=== PATIENT | male | born 1945 | race Caucasian/White ===

== ENCOUNTER 2016-08-25 11:09 | Day surgery (SDC) | payer OTHER ==
[2016-08-25] MEDS ORDERED: NS 1,000 ML IV SCH (12:00)
[2016-08-25] MEDS ORDERED: fentaNYL 100 MCG/2 ML INJ ONE (12:47)
[2016-08-25] MEDS ORDERED: MIDAZOLAM 2 MG/2 ML VIAL ONE (12:48)
--- NOTE | 2016-08-25 14:19 | GPN ---
[f rep st] PROCEDURE NOTE DATE OF PROCEDURE: 08/25/2016 PROCEDURE: Colonoscopy, biopsy, injection, snare, destruction of remaining tissue or ablation. Procedure report dated dictation is today. INDICATIONS: Residual polyp tissue at previous biopsy site in midtransverse colon. Evaluate for any residual tissue. PREOPERATIVE DIAGNOSIS: Rule out residual tissue. POSTOPERATIVE DIAGNOSES: 1. 2 mm proximal ascending colon polyp removed by cold biopsy. 2. Abnormal area of tissue in the midtransverse colon consistent with previous polypectomy biopsy site status post saline assisted lift polypectomy with hot snare partial removal and then destruction of the remaining tissue with argon plasma coagulation, and finally Jaqui ink injection for future reference. INFORMED CONSENT: I discussed with the patient regarding the procedure, alternatives, benefits, risks including bleeding, perforation, infection, risk of medication. Informed consent was signed and witnessed. COMPLICATIONS: None immediate. MEDICATIONS: Versed 4 mg IV, fentanyl 100 mcg IV. DESCRIPTION OF PROCEDURE: Patient placed in left lateral decubitus position. A visual and digital examination was performed. The video colonoscope was inserted via the rectum and advanced under visualization to the terminal ilium. Identified cecum by ileocecal valve, appendiceal orifice, and confluence of tinea. I performed a retroflex examination in the cecum. The endoscope was slowly withdrawn confirming with careful attention paid to mucosal detail. There was a tiny 2 mm polyp in the proximal ascending colon that was removed en toto by cold biopsy. There was the abnormal previous polypectomy area in the midtransverse colon that was noted. This tissue was removed with a saline assisted polypectomy in a piecemeal fashion with incomplete removal. The remaining tissue was destroyed with an argon plasma shipper/receiver. After the destruction of the remaining tissue, I injected Jaqui ink into either side of this polyp to locate it for future reference. The endoscope was then completely withdrawn, confirming the above findings. The patient tolerated the procedure well and was transferred to the recovery room in stable condition. IMPRESSION: 1. Small proximal ascending colon polyp removed by cold biopsy. 2. Abnormal tissue in transverse colon, status post saline assisted piecemeal polypectomy with destruction of remaining tissue by argon plasma coagulation and Jaqui ink injection for future reference. RECOMMENDATIONS: 1. Follow up pathology. 2. Repeat colonoscopy depending on pathology. Probably within 6 months, max a year. 3. If any significantly abnormal cells, i.e. high-grade dysplasia or invasive carcinoma, I may recommend resection 4. Except for use cardiac stroke prevention, try to avoid aspirin and nonsteroidal anti-inflammatory drugs for the next 7-10 days. 5. High-fiber diet. 6. Follow up with PCP as scheduled. 7. Further recommendations to follow results of pathology. Thank you for allowing me on the participate in this patient's healthcare. Do not hesitate to call with any questions. /[id number]/MODL MTDD
== END 2016-08-25 14:00 | disposition home or self-care (01) ==
LOC: FSGY 11:09
PROVIDERS: ATTEND Internal Medicine Gastroenterology
DX: D12.3 Benign neoplasm of transverse colon (principal); D12.2 Benign neoplasm of ascending colon; Z86.010 Personal history of colon polyps
CPT/HCPCS: J2250; J3010

== ENCOUNTER → 2017-08-07 | Outpatient (CLI) | payer OTHER | LOC: BHLMT 14:00 | PROVIDERS: ATTEND Internal Medicine Cardiovascular Disease | DX: E78.5 Hyperlipidemia, unspecified (principal); R53.83 Other fatigue; C61 Malignant neoplasm of prostate | CPT/HCPCS: 93005-PO ==

== ENCOUNTER → 2017-08-23 | Outpatient (CLI) | payer OTHER | LOC: BHLMT 11:30 | PROVIDERS: ATTEND Internal Medicine Cardiovascular Disease | DX: R00.2 Palpitations (principal) | CPT/HCPCS: 93225-PO; 93226-PO ==

== ENCOUNTER → 2017-08-28 | Outpatient (CLI) | payer OTHER | LOC: BHLMT 09:00 | PROVIDERS: ATTEND Internal Medicine Cardiovascular Disease | DX: R53.83 Other fatigue (principal); E78.5 Hyperlipidemia, unspecified | CPT/HCPCS: 93017-PO ==

== ENCOUNTER → 2017-08-29 | Outpatient (CLI) | payer OTHER | LOC: BHLMT 15:30 | PROVIDERS: ATTEND Internal Medicine Cardiovascular Disease | DX: R00.2 Palpitations (principal) | CPT/HCPCS: 93306-PO ==

== ENCOUNTER 2018-05-01 10:17 | Day surgery (SDC) | payer OTHER ==
[2018-05-01] MEDS ORDERED: LR 1,000 ML IV ONE (10:31)
--- NOTE | 2018-05-01 12:14 | PDPROPOC ---
Sedation Plan of Care Sedation Plan of Care: vital signs stable, mental status noted, patient educated of risks, benefits, alternatives, patient can tolerate sedation ASA Classification: ASA 2 Planned drugs: fentanyl, midazolam Mallampati Score: Class 1 Mallampati Reference Image: Patient passed 3-3-2 rule?: Yes
--- NOTE | 2018-05-01 12:17 | PDGENHP ---
History & Physical Chief Complaint: phx polyps History of Present Illness: piecemeal removal poylp one year ago Pertinent Past, Social, Family History: no tobacco. alcohol once per week. dm , lipds. fhx polyps no colon cancer Relevant Physical Exam: A+O?x3. CTA. S1S2, RRR. +BS soft nt Cardiorespiratory Assessment: class
[2018-05-01] MEDS ORDERED: fentaNYL 100 MCG/2 ML INJ ONE (12:23)
[2018-05-01] MEDS ORDERED: MIDAZOLAM 2 MG/2 ML VIAL ONE (12:23)
[2018-05-01] MEDS ORDERED: fentaNYL 100 MCG/2 ML INJ IVP ONE (12:40)
[2018-05-01] MEDS ORDERED: MIDAZOLAM 2 MG/2 ML VIAL IVP ONE (12:40)
--- NOTE | 2018-05-01 13:18 | GIREPORT ---
[facility] - Endoscopy Department Patient Name: Ridge Judd Procedure Date: 05/01/2018 11:07 AM Patient Type: Outpatient Attending MD/ ER Physician: Solis Duong MD Procedure: Colonoscopy Indications: Surveillance: Personal history of (in)complete removal of large sessile adenoma on last colonoscopy 6 months ago Providers: Solis Duong MD Referring MD: Michael Garland MD Medicines: Fentanyl 100 micrograms IV, Midazolam 5 mg IV Complications: No immediate complications. Estimated blood loss: Minimal. Description of Procedure: After obtaining informed consent, the scope was passed under direct vis ion. Throughout the procedure, the patient's blood pressure, pulse, and oxyg en saturations were monitored continuously. The Colonoscope with irrigatio n channel was introduced through the anus and advanced to the cecum, identified by the appendiceal orifice, ileocecal valve and palpation. T he colonoscopy was performed without difficulty. The patient tolerated the procedure well. The quality of the bowel preparation was good. Moderate Sedation: Moderate (conscious) sedation was administered by the endoscopy nurse chris malone supervised by the endoscopist. The following parameters were monitored: oxygen saturation, heart rate, blood pressure, and response to care. To vaughn physician intraservice time was 35 minutes. Findings: The digital rectal exam was normal. The terminal ileum appeared normal. A post polypectomy scar was found in the cecum. There was residual poly p tissue. The polyp was removed with a piecemeal technique using a hot sn are. Polyp resection was incomplete. The resected tissue was retrieved. Fulguration to ablate a substantial remaining portion of the lesion by argon plasma at 0.5 liters/minute and 20 webb was successful. Estimated bloo d loss was minimal. Three polyps were found in the ascending colon. The polyps were 2 mm in size. These polyps were removed with a cold biopsy forceps. Resection a nd retrieval were complete. Estimated blood loss was minimal. A post polypectomy scar was found in the mid transverse colon. Jaqui in k present. Multiple small and large-mouthed diverticula were found in the entire c olon. A localized area of mildly altered vascular and erythematous mucosa was found in the distal rectum. The exam was otherwise without abnormality. Estimated Blood Loss: Estimated blood loss was minimal. Post Op Diagnosis: - The examined portion of the ileum was normal. - Post-polypectomy scar in the cecum. Snare removal of partial polyp ti ssue. Treated with argon plasma coagulation (APC). - The polyp/scar area in the cecum is difficult to see as it is just be hind the ICV fold - see phoot 6,7,8. I could not see it in retroflex view. - Three 2 mm polyps in the ascending colon, removed with a cold biopsy forceps. Resected and retrieved. - Post-polypectomy scar in the mid transverse colon. No residual tissue - Diverticulosis in the entire examined colon. - Altered vascular and erythematous mucosa in the distal rectum. - The examination was otherwise normal. Recommendation: - Await pathology results. - My office will call with the pathology result with 5-7 days. If you h ave not heard from my office by 12-14, do not assume the pathology is yessica l, please call [phone] to get the pathology results. - Repeat colonoscopy date to be determined after pending pathology resu lts are reviewed for surveillance based on pathology results. Six months to 12 months maximum - Continue present medications. - Avoid Aspirin and NSAIDs for 7-10 days except as used for cardiac or stroke prevention. - High fiber diet indefinitely. - 30-35 grams of dietary fiber per day. Can use supplemental fiber. - A high fiber diet may decrease risk of complications from diverticulo sis. There is no need to avoid seeds or nuts. - Patient has a contact number available for emergencies. The signs and symptoms of potential delayed complications were discussed with the pat ient. Return to normal activities tomorrow. Written discharge instructions we re provided to the patient. - Discharge patient to home (ambulatory). - Return to primary care physician as previously scheduled. - Thank you for allowing me to help in your patient's care. Do not hesi hayes to call with any questions. Attending Participation: I personally performed the entire procedure. Ad Hall M.D Solis Duong MD 05/01/2018 1:18:19 PM This report has been signed electronicallyMatthew MD Ad Number of Addenda: 0 Note Initiated On: 05/01/2018 11:07 AM Total Procedure Duration Time 0 hours 28 minutes 39 seconds [email or web address]
[2018-05-01 13:49] VITALS: BP 110/59
== END 2018-05-01 14:00 | disposition home or self-care (01) ==
LOC: FSGY 10:17
PROVIDERS: ATTEND Internal Medicine Gastroenterology
DX: D12.0 Benign neoplasm of cecum (principal); D12.2 Benign neoplasm of ascending colon; K57.30 Diverticulosis of large intestine without perforation or abscess without bleeding
CPT/HCPCS: J2250; J3010